=== PATIENT | male | born 1990 | race Caucasian/White ===

== ENCOUNTER → 2019-12-08 15:11 | Outpatient (CLI) | payer OTHER, SELFPAY ==
[2019-12-10 00:34] LABS: COVID19 Sendout Not Detected (Not Detected)
== END ==
PROVIDERS: Visit Provider Family Medicine
DX: Z03.818 Encounter for observation for suspected exposure to other biological agents ruled out (principal)
CPT/HCPCS: 87635

== ENCOUNTER 2022-05-17 20:55 | Emergency (ER) | payer OTHER, MEDICAID, SELFPAY ==
[2022-05-17 21:05] VITALS: BP 160/89; PULSE 111; RESP 22; TEMP 36.8; O2SAT 98; BMI 29.8
[2022-05-17 21:09] VITALS: PULSE 117; RESP 34; O2SAT 99
--- NOTE | 2022-05-17 21:10 | ED_ITS ---
HPI - General Adult General Chief complaint: Upper Respiratory Symptoms Stated complaint: throat pain/strep? sore on hair line/weak [id number] Time Seen by Provider: 05/17/22 21:03 Source: patient Mode of arrival: Ambulatory History of Present Illness HPI narrative: 32-year-old male is here for evaluation approximately 2 weeks of sore throat, fevers, enlarged lymph nodes in his neck, a mild cough, and a sore that has developed in his hairline just today. He also has used cocaine in the past week and heroin in the past couple hours. Has not tried anything for symptoms prior to arrival. Related Data Previous Rx's Medication Instructions Recorded azithromycin 500 mg tablet 500 mg PO DAILY 4 days #4 tabs 05/17/22 Allergies Allergy/AdvReac Type Severity Reaction Status Date / Time amoxicillin [AMOXICILLIN] Allergy Unknown Unverified 12/08/19 15:00 Penicillins [PENICILLINS] Allergy Unknown HIVES Unverified 12/08/19 15:00 Review of Systems Constitutional Constitutional: Reports system reviewed and no additional complaints, except as documented ENT Ears, Nose, Mouth, and Throat: Reports system reviewed and no additional complaints, except as documented Respiratory Respiratory: Reports system reviewed and no additional complaints, except as documented Integumentary/Breasts Skin/Breast: Reports system reviewed and no additional complaints, except as documented Hematologic/Lymphatic On Anticoagulants: No Patient History Medical History Heroin abuse Social History Smoking Status: Never smoker Smoking Status: Never smoker Substance Use Type: crack/cocaine and heroin Exam Initial Vital Signs Initial Vital Signs: Vital Signs Temperature 98.3 F 05/17/22 21:05 Pulse Rate 111 H 05/17/22 21:05 Respiratory Rate 22 05/17/22 21:05 Blood Pressure 160/89 H 05/17/22 21:05 Pulse Oximetry 98 05/17/22 21:05 Oxygen Delivery Method 05/17/22 21:05 Const General: cooperative, comfortable, well developed and No ill appearing HENMT Head: normal to inspection and normocephalic Face and sinus: normal facial exam Mouth: oral mucosae normal, lip normal and moist mucous membranes Throat: abnormal tonsil bilaterally erythema and exudates Neck Lymphatic: lymphadenopathy Resp Effort & Inspection: normal respiratory effort Skin Other: Patient has a single skin lesion in the middle of his forehead at the hairline. There are no vesicles. There is no surrounding erythema. Neuro General: patient alert, patient awake and moves all extremities Extrem General: normal to inspection Course Orders Ordered: ED Orders 05/17/22 21:10 Throat Culture Stat Discontinued Medications Azithromycin (Azithromycin 250 Mg Tablet) 500 mg PO NOW ONE Stop: 05/17/22 21:12 Last Admin: 05/17/22 21:17 Dose: 500 mg Documented By: CORNELIO Dexamethasone (Dexamethasone 4 Mg Tablet) 12 mg PO NOW ONE Stop: 05/17/22 21:12 Last Admin: 05/17/22 21:17 Dose: 12 mg Documented By: CORNELIO Vital Signs Vital signs: Vital Signs - 8 hr 05/17/22 21:05 05/17/22 21:09 Temperature 98.3 F Pulse Rate 111 H 117 H Respiratory Rate 22 34 H Blood Pressure 160/89 H Pulse Oximetry 98 99 Oxygen Delivery Method Room Air Medical Decision Making Lab Data Labs: Point of Care Testing Rapid Strep A Positive Point of care testing: Point of Care Testing Rapid Strep A Positive MDM Narrative Medical decision making narrative: History and physical exam is consistent with strep throat. He is positive on his rapid strep. There is no indication of peritonsillar abscess or retropharyngeal abscess. Patient is allergic to penicillin. Was given 1st dose of azithromycin here in the ER and a prescription was sent to the pharmacy of his choice. Was also given Decadron. No respiratory distress. Patient does have a skin lesion in the middle of his forehead. Does not appear to be herpes. Will have him use topical antibiotic ointment for now. He was given return precautions and follow-up instructions. He expressed understanding and agreement. Discharge Plan Departure Patient Disposition: Home Clinical Impression: Pharyngitis due to Streptococcus species Instructions: DI for Strep Throat Activity Restrictions/Additional Instructions: A prescription for the remainder of the course of antibiotics was sent to [facility] per your request. Please start taking them tomorrow as directed. You were given a 1st dose here in the ER. Be sure to increase your fluid intake. You can take Tylenol for any fevers or body aches. Return to the emergency department for any new or worsening symptoms. Prescriptions: New azithromycin 500 mg tablet 500 mg PO DAILY 4 Days Qty: 4 0RF
[2022-05-17] MEDS: AZITHROMYCIN 250 MG TABLET 500 MG PO (21:17)
[2022-05-17] MEDS: dexAMETHasone 4 MG TABLET 12 MG PO (21:17)
== END 2022-05-17 21:32 | disposition home or self-care (01) ==
PROVIDERS: Emergency Provider Emergency Medicine
DX: J02.0 Streptococcal pharyngitis (principal)
CPT/HCPCS: 87070; 87077; 87147; 87880; 99283